=== PATIENT | female | born 1970 | race Caucasian/White ===

== ENCOUNTER 2020-10-13 10:58 | Outpatient (CLI) | payer OTHER, SELFPAY ==
--- NOTE | 2020-10-13 11:09 | MM_ITS ---
WS: [id number] BILATERAL DIGITAL SCREENING MAMMOGRAPHY WITH CAD CLINICAL INFORMATION: SCREENING HISTORY: Screening mammogram. No current complaints. COMPARISON: TECHNIQUE: Bilateral CC and MLO views. FINDINGS: The breasts are composed of heterogeneous fibroglandular density tissue, which can limit the detectio n of small underlying mass lesions. Incidental intramammary lymph nodes upper outer left breast. No s uspicious mass, asymmetry, calcifications, or architectural distortion. No evidence of malignancy. MM/[place] [id number] IMPRESSION: BI-RADS: 2-Benign FOLLOW UP: 1 Year Follow-up Recommend return to annual screening mammography.
== END 2020-10-13 10:59 | disposition home or self-care (01) ==
LOC: RADSHAW 11:08
PROVIDERS: Family Provider Internal Medicine; PCP Internal Medicine; Visit Provider Internal Medicine
DX: Z12.31 Encounter for screening mammogram for malignant neoplasm of breast (principal)
CPT/HCPCS: 77067

== ENCOUNTER 2022-02-21 10:37 | Outpatient (CLI) | payer OTHER, SELFPAY ==
--- NOTE | 2022-02-21 10:49 | MM_ITS ---
WS: [id number] BILATERAL SCREENING DIGITAL TOMOSYNTHESIS MAMMOGRAM WITH CAD HISTORY: SCREENING COMPARISON: 10/13/2020, 05/15/2018 Bilateral CC and MLO views with tomosynthesis and synthetic mammography submitted. Computer aided det ection analyzed. Breast composition: There are scattered areas of fibroglandular density. No suspicious masses, microc alcifications or architectural distortion. Benign intramammary lymph node upper outer quadrant LEFT b reast. MM/[place] [id number] IMPRESSION: BI-RADS: 2-Benign FOLLOW UP: 1 Year Follow-up
== END 2022-02-21 10:38 | disposition home or self-care (01) ==
LOC: RAD 10:38
PROVIDERS: Family Provider Internal Medicine; PCP Internal Medicine; Visit Provider Internal Medicine
DX: Z12.31 Encounter for screening mammogram for malignant neoplasm of breast (principal)
CPT/HCPCS: 77063; 77067

== ENCOUNTER 2022-06-14 10:09 | Outpatient (CLI) | payer OTHER, SELFPAY ==
--- NOTE | 2022-06-14 10:51 | XR_ITS ---
WS: [id number] Exam: XR abdomen min 2V [id number] Date/Time of Exam: 06/14/2022 11:02 AM Reason For Exam: LUQ ABDOMINAL PAIN/EPIGASTRIC ABDOMINAL PAIN No bowel obstruction or free air. No sign of organ enlargement. Signs of prior cholecystectomy. Bony structures are intact. 2 mm nonspecific right pelvic calcification. XR/XR abdomen min 2V [id number] IMPRESSION: 1. No acute abdominal process.
[2022-06-14 12:10] LABS: Basophils # 0.1 10^3/uL (0.0-0.1); Basophils % 0.5 %; Eosinophils # 0.1 10^3/uL (0.0-0.8); Eosinophils % 0.6 %; Hematocrit 43.6 % (37.0-47.0); Hemoglobin 14.1 g/dL (11.5-15.3); Lymphocytes # 2.4 10^3/uL (0.8-4.8); Lymphocytes % 24.6 %; Mean Corpuscular HGB Conc 32.3 g/dL (30.0-36.0); Mean Corpuscular Hemoglobin 28.5 pg (28.0-34.0); Mean Corpuscular Volume 88.3 fl (81-99); Mean Platelet Volume 8.1 fL (7.4-10.4); Monocytes # 0.7 10^3/uL (0.2-0.9); Neutrophils # 6.62 10^3/uL (1.8-7.7); Neutrophils % 66.9 %; Nucleated Red Blood Cells % 0 %; Platelet Count 338 10^3/cmm (130-400); Red Blood Count 4.94 10^6/uL (4.1-5.3); Red Cell Distribution Width 13.3 % (12.1-15.1); White Blood Count 9.9 10^3/uL (4.0-10.0)
[2022-06-14 12:25] LABS: Amylase 45 U/L (28-100); Lipase 14 U/L (13-60)
== END 2022-06-14 10:10 | disposition home or self-care (01) ==
PROVIDERS: PCP Internal Medicine; Visit Provider Nurse Practitioner Family
DX: R10.12 Left upper quadrant pain (principal); R10.13 Epigastric pain
CPT/HCPCS: 36415; 74019; 82150; 83690; 85025

== ENCOUNTER 2022-06-22 06:01 | Outpatient (CLI) | payer OTHER, SELFPAY ==
--- NOTE | 2022-06-22 | US_ITS ---
WS: [id number] Complete ABDOMINAL ULTRASOUND HISTORY: LUQ PAIN COMPARISON: 12/16/2014 Liver: 14.8 cm in length. Normal size liver and echogenicity. No bile duct dilatation or mass. Portal Vein: Normal hepatopetal flow with monophasic waveform. Gallbladder: Status post cholecystectomy. CBD: 0.5 cm Pancreas: Normal size and echogenicity. Right kidney: 11.1 cm x 5.8 x 4.8 cm. Cortex:1.4 cm. Normal size and echogenicity. No hydronephrosis or mass. Left kidney: 10.1 cm x 4.6 cm x 5.1 cm. Cortex: 2.2 cm. No mass, cortical thickening or hydronephrosis. Spleen: Normal size and echogenicity. Aorta and IVC: Unremarkable abdominal aorta and IVC. US/US abdomen complete* [id number] Impression: 1. Prior cholecystectomy. 2. No hydronephrosis. 3. No bile duct dilatation.
== END 2022-06-22 06:02 | disposition home or self-care (01) ==
LOC: RAD 06:02
PROVIDERS: PCP Internal Medicine; Visit Provider Internal Medicine
DX: R10.12 Left upper quadrant pain (principal); Z90.49 Acquired absence of other specified parts of digestive tract
CPT/HCPCS: 76700

== ENCOUNTER 2022-07-17 07:46 | Outpatient (CLI) | payer OTHER, SELFPAY ==
--- NOTE | 2022-07-17 07:54 | CT_ITS ---
WS: [id number] CT ABDOMEN AND PELVIS NONCONTRAST HISTORY: ABDOMINAL PAIN, LEFT LOWER QUADRANT TECHNIQUE: Imaging performed through the abdomen and pelvis. Coronal and sagittal reformats are submi tted. All CT scans at [facility] use at least one of these dose optimization techniques: auto mated exposure control; mA and/or kV adjustment per patient size (includes targeted exams where dose is matched to clinical indication); or iterative reconstruction. DLP: 740.95 mGy.cm COMPARISON: None available. Lower thorax: Noncalcified 5.5 mm RIGHT middle lobe nodule. Heart is normal size. Small hiatal hernia . Liver: Moderately enlarged with mild hepatic steatosis. Gallbladder: Prior cholecystectomy. No bile duct dilatation. Pancreas: Normal size and attenuation. Normal pancreatic duct. No pancreatitis or mass. Spleen: Normal. Adrenal glands: Normal. No mass. Right kidney: Normal size kidney with no mass or hydronephrosis. Left kidney: Normal size kidney with no mass or hydronephrosis. Aorta: Normal abdominal aorta, no aneurysm or atherosclerosis. No free fluid, intraperitoneal air or significant lymphadenopathy. GI tract: Normal noncontrast imaging of the stomach and small bowel. No obstruction or wall thickenin g. There is mild change in caliber of the colon near the splenic flexure. More proximal colon is flui d and air distended. No significant mass in the region of the transition change but if colonoscopy solano s not been performed may be beneficial to exclude neoplasm. No adjacent lymph nodes or stranding. The re are a few distal colonic diverticula. Normal appendix. There is a small calcification which may be an appendicolith at the base of the appendix. Abdominal wall: Small umbilical hernia contains fat only. Pelvis: Prior hysterectomy. No free fluid or adenopathy. Osseous structures: Unremarkable. CT/CT kidney stone [id number] IMPRESSION: 1. No renal calcifications or obstruction. 2. Prior cholecystectomy. 3. Normal appendix. 4. Change in colonic caliber in the splenic flexure. Underlying early colonic neoplasm should be considered. Consider follow-up with colonoscopy. Otherwise t here are a few small scattered distal colonic diverticula without acute diverti culitis. 5. No adenopathy or ascites. 6. Noncalcified 5.5 mm RIGHT middle lobe nodule. Recommend follow-up chest CT 3 months.
== END 2022-07-17 07:47 | disposition home or self-care (01) ==
PROVIDERS: PCP Internal Medicine; Visit Provider Internal Medicine
DX: R10.32 Left lower quadrant pain (principal); Z90.49 Acquired absence of other specified parts of digestive tract
CPT/HCPCS: 74176

== ENCOUNTER 2022-11-22 07:44 | Outpatient (CLI) | payer OTHER, SELFPAY ==
--- NOTE | 2022-11-22 07:58 | CT_ITS ---
WS: [id number] CT CHEST TECHNIQUE: Contrast enhanced CT of the chest with coronal and sagittal reformatted images. CLINICAL INFORMATION: PULMONARY NODULE COMPARISON: CT kidney stone 07/17/2022 DLP: 477.[address] scans at [facility] use at least one of these dose optimization techniques: automated e xposure control; mA and/or kV adjustment per patient size (includes targeted exams where dose is matc hed to clinical indication); or iterative reconstruction. FINDINGS: Stable 5 mm nodule RIGHT middle lobe. 4 mm nodule superior segment RIGHT lower lobe. Tiny 2.5 mm nodu le LEFT upper lobe anteriorly. Tiny nodule along the LEFT fissure. Additional tiny hazy nodule RIGHT middle lobe anteriorly 4.5 mm Normal caliber thoracic aorta. No mediastinal or hilar lymphadenopathy. No axillary lymphadenopathy. Diffuse fatty infiltration of the liver. Prior cholecystectomy. Small esophageal hiatal hernia. Adren al glands are normal. IMPRESSION: 1. Stable 5 mm nodule RIGHT middle lobe. 2. 4 mm nodule superior segment RIGHT lower lobe. 3. Tiny 2.5 mm nodule LEFT upper lobe anteriorly. Tiny nodule along the LEFT fissure. 4. Additional small hazy nodule RIGHT middle lobe anteriorly measuring 4.5 mm 5. No mediastinal or hilar lymphadenopathy. 6. Small esophageal hiatal hernia.
[2022-11-22] MEDS: iohexol 350 mg/mL 500 mL Btl (per mL) IV (08:06)
== END 2022-11-22 07:45 | disposition home or self-care (01) ==
PROVIDERS: PCP Internal Medicine; Visit Provider Internal Medicine
DX: R91.1 Solitary pulmonary nodule (principal); R91.8 Other nonspecific abnormal finding of lung field; K44.9 Diaphragmatic hernia without obstruction or gangrene
CPT/HCPCS: 71260; Q9967